=== PATIENT | female | born 1990 | race Two or more races ===

== ENCOUNTER 2020-09-10 05:52 | Day surgery (SDC) | payer OTHER ==
[2020-09-10] MEDS ORDERED: NEXIUM 24HR20 MG PO (09:27)
== END 2020-09-10 11:15 | disposition home or self-care (01) ==
LOC: CIR.AMB 05:52
PROVIDERS: ATTEND Surgery
DX: D13.1 Benign neoplasm of stomach (principal); K44.9 Diaphragmatic hernia without obstruction or gangrene; Z20.822 Contact with and (suspected) exposure to COVID-19